=== PATIENT | female | born 1980 | race Caucasian/White ===

== ENCOUNTER → 2021-02-07 | Outpatient (CLI) | payer BC | LOC: MAMMO 16:00 | DX: Z12.31 Encounter for screening mammogram for malignant neoplasm of breast (principal) ==

== ENCOUNTER → 2022-04-01 | Outpatient (CLI) | payer BC | LOC: MAMMO 13:44 | DX: Z12.31 Encounter for screening mammogram for malignant neoplasm of breast (principal); R92.0 Mammographic microcalcification found on diagnostic imaging of breast ==

== ENCOUNTER → 2022-04-08 | Outpatient (CLI) | payer BC | LOC: MAMMO 07:00 | DX: R92.0 Mammographic microcalcification found on diagnostic imaging of breast (principal) ==